=== PATIENT | female | born 1985 | race Caucasian/White ===

== ENCOUNTER 2021-02-01 19:08 | Emergency (ER) | payer OTHER ==
[~2021-02-01] VITALS: Ht 175.3 cm; Wt 100.0 kg
[~2021-02-01 19:08] MED LIST: Crutch1 EACH MISC; IBUP600 PO
== END 2021-02-02 00:31 | disposition home or self-care (01) ==
LOC: ER 19:08
DX: S46.912A Strain of unspecified muscle, fascia and tendon at shoulder and upper arm level, left arm, initial encounter (principal); V49.60XA Unspecified car occupant injured in collision with unspecified motor vehicles in traffic accident, initial encounter; Y92.410 Unspecified street and highway as the place of occurrence of the external cause
CPT/HCPCS: 71046; 73030; 74177; 81000; 81025; 99284-25; A9270; Q9967